=== PATIENT | male | born 1930 | race Asian ===

== ENCOUNTER → 2016-08-16 | Outpatient (CLI) | payer OTHER ==
[~2016-08-16] MED LIST: AMLO2.5T PO; ASPI81TA2 PO; CILO100T PO; DYAZIDE PO; FINA5TAB41 PO; LEVO50 PO; OLME40 PO; QUET100T PO
== END | disposition home or self-care (01) ==
LOC: RADPV 11:42
PROVIDERS: ATTEND Internal Medicine
DX: J98.4 Other disorders of lung (principal); I70.0 Atherosclerosis of aorta
CPT/HCPCS: 71020

== ENCOUNTER → 2017-02-21 | Outpatient (CLI) | payer OTHER | END | disposition home or self-care (01) | LOC: RADPV 09:41 | PROVIDERS: ATTEND Internal Medicine Cardiovascular Disease | DX: I08.0 Rheumatic disorders of both mitral and aortic valves (principal); I70.203 Unspecified atherosclerosis of native arteries of extremities, bilateral legs | CPT/HCPCS: 93306; 93925 ==